=== PATIENT | male | born 1955 | race Caucasian/White ===

== ENCOUNTER 2018-01-21 10:59 | Inpatient (IN) | payer OTHER ==
[~2018-01-21] VITALS: Ht 182.9 cm; Wt 98.3 kg
[2018-01-21] MEDS ORDERED: SODIUM CHLORIDE 0.9% 1,000 ML IV ONE (11:24)
[2018-01-21] MEDS ORDERED: ONDANSETRON HCL 4 MG/2 ML VIAL IV ONE (11:30)
[2018-01-21] MEDS ORDERED: ASPirin 81 mg TAB PO ONE (11:30)
[2018-01-21 11:52] LABS: Basophils # (auto) 0 uL; Basophils % (auto) 0.6 % (0.0-2.0); Eosinophils # (auto) 0.1 uL; Eosinophils % (auto) 1.8 % (0.0-7.0); Hematocrit 47.2 % (41.0-53.0); Hemoglobin 16.4 g/dL (13.5-17.5); Lymphocytes # (auto) 1.4 uL; Mean Corpuscular Hemoglobin 31.6 pg (28.0-32.0); Mean Corpuscular Hgb Conc. 34.8 g/dL (32.0-36.0); Mean Corpuscular Volume 90.6 fL (80.0-100.0); Monocytes # (auto) 0.4 uL; Monocytes % (auto) 7.2 % (0.0-12.0); Neutrophils # (auto) 3.4 uL; Neutrophils % (auto) 64.4 % (37.0-80.0); Nucleated Red Blood Cells % 0.1 %; Platelet Count (auto) 196 10^3/uL (140-450); Red Cell Distribution Width 13.1 % (11.8-14.3); White Blood Cell 5.3 10^3/uL (4.4-10.8)
[2018-01-21 12:09] LABS: INR 0.98 (0.9-1.15); Partial Thromboplastin Time 28.3 sec (22.64-33.71); Prothrombin Time 10.7 sec (9.37-12.3)
[2018-01-21 12:24] LABS: Alanine Aminotransferase 65 U/L (16-61); Albumin 3.7 g/dL (3.4-5.0); Alkaline Phosphatase 90 U/L (45-117); Anion Gap 12 (5-15); Aspartate Aminotransferase 46 U/L (15-37); BUN/Creatinine Ratio 20.8; Bilirubin, Total 0.8 mg/dL (0.2-1.0); Blood Urea Nitrogen 26 mg/dL (7-18); Calcium 8.9 mg/dL (8.5-10.1); Carbon Dioxide 23 mmol/L (21-32); Chloride 101 mmol/L (98-107); GFR African American 76 mL/min; GFR Non-African American 63 mL/min; Magnesium 2.1 mg/dL (1.6-2.6); Potassium 4.2 mmol/L (3.5-5.1); Sodium 136 mmol/L (136-145); Total Protein 8.2 g/dL (6.4-8.2)
[2018-01-21] MEDS ORDERED: NITROGLYCERIN 0.4 MG SL TAB SL ONE (12:28)
[2018-01-21 12:33] LABS: Glucose 440 mg/dL (74-106)
[2018-01-21] MEDS ORDERED: InsuLIN REG 1unit/0.01ml Soln (100units/ml) IV ONE (13:00)
[2018-01-21] MEDS ORDERED: SODIUM CHLORIDE 0.9% 1,000 ML IV SCH (13:47)
[2018-01-21] MEDS ORDERED: MORPHINE SULFATE 4 MG/ML SYR/VIAL IV PRN ×2 (14:00)
[2018-01-21] MEDS ORDERED: LORazepam 0.5 MG TAB PO PRN (14:00)
[2018-01-21] MEDS ORDERED: NITROGLYCERIN 0.4 MG SL TAB SL PRN (14:00)
[2018-01-21] MEDS ORDERED: TEMAZEPAM 15 MG CAP PO PRN (14:00)
[2018-01-21] MEDS ORDERED: PROMETHAZINE HCL 25 MG/ML 1ML IV PRN (14:00)
[2018-01-21] MEDS ORDERED: ALBUTEROL SULF 2.5 MG/0.5ML(0.5%) NEB SOLN NEB PRN (14:00)
[2018-01-21] MEDS ORDERED: LACTULOSE 20Gm/30ML SOLN PO PRN (14:00)
[2018-01-21] MEDS ORDERED: ACETAMINOPHEN 500 MG TAB PO PRN (14:00)
[2018-01-21] MEDS ORDERED: NITROGLYCERIN 0.2MG/HR TOPICAL PATCH TD ONE (14:15)
[2018-01-21 14:23] LABS: Hepatitis B Surface Antibody Negative
[2018-01-21 14:33] LABS: Hepatitis B Surface Antigen Negative (Negative)
[2018-01-21 15:01] LABS: Hepatitis A Total Antibody Negative; Hepatitis C Antibody Negative (Negative)
[2018-01-21 15:02] LABS: Hepatitis B Core Total AB Negative
[2018-01-21] MEDS: HYDROcodone-ACET 5/325MG TAB PO PRN (15:20)
[2018-01-21 16:17] LABS: Alcohol, Urine < 3.0 mg/dL (0-5); Amphetamine Screen, Urine NEGATIVE (NEGATIVE); Barbiturate Scree,Urine NEGATIVE (NEGATIVE); Benzodiazephine Screen, Urine NEGATIVE (NEGATIVE); Cannabinoid Screen, Urine NEGATIVE (NEGATIVE); Cocaine Screen, Urine NEGATIVE (NEGATIVE); Opiate Scree,Urine NEGATIVE (NEGATIVE); Phencyclidine Screen, Urine NEGATIVE (NEGATIVE)
[2018-01-21] MEDS: ALBUTEROL SULF 2.5 MG/0.5ML(0.5%) NEB SOLN NEB SCH (18:11)
[2018-01-21] MEDS: IPRATROPIUM BROM 0.5 MG/2.5ML INH SOL NEB SCH (18:11)
[2018-01-21] MEDS: SODIUM CHLORIDE 0.9% 1,000 ML IV SCH (18:49)
[2018-01-21] MEDS ORDERED: ENOXAPARIN SOD 100 MG/1 ML SYRINGE SC SCH (19:44)
[2018-01-21 20:40] VITALS: BP 134/79
[2018-01-21] MEDS: METOPROLOL TARTRATE 25 MG TAB PO SCH (22:31)
[2018-01-22] MEDS: ALBUTEROL SULF 2.5 MG/0.5ML(0.5%) NEB SOLN NEB SCH ×4 (00:38→18:51)
[2018-01-22] MEDS: IPRATROPIUM BROM 0.5 MG/2.5ML INH SOL NEB SCH ×4 (00:38→18:51)
[2018-01-22] MEDS ORDERED: DEXTROSE (50%) 50ML SYRG IV PRN (03:15)
[2018-01-22] MEDS: HYDROcodone-ACET 5/325MG TAB PO PRN (03:18)
[2018-01-22 06:03] VITALS: BP 108/73
[2018-01-22] MEDS: ACCU-CHEK COMFORT CURVE STRIP VI SCH ×4 (06:23→23:30)
[2018-01-22] MEDS: InsuLIN REG 1unit/0.01ml Soln (100units/ml) SC SCH ×4 (06:27→23:30)
[2018-01-22 06:49] LABS: Albumin 3.6 g/dL (3.4-5.0); Bilirubin, Total 0.8 mg/dL (0.2-1.0); Calcium 8.9 mg/dL (8.5-10.1); Potassium 4.6 mmol/L (3.5-5.1); Total Protein 7.8 g/dL (6.4-8.2)
[2018-01-22] MEDS: SODIUM CHLORIDE 0.9% 1,000 ML IV SCH (07:51)
[2018-01-22] MEDS ORDERED: ADENOSINE 84 MG in GIVE UN-DILUTED 0 ML IV STA (08:00)
[2018-01-22 09:24] VITALS: BP 136/73
[2018-01-22] MEDS: METOPROLOL TARTRATE 25 MG TAB PO SCH ×2 (10:00→22:16)
[2018-01-22] MEDS ORDERED: ENOXAPARIN SOD 40 MG/0.4 ML SYRINGE SC SCH (10:00)
[2018-01-22] MEDS ORDERED: NITROGLYCERIN 0.4 MG SL TAB SL ONE ×2 (10:00)
[2018-01-22] MEDS ORDERED: NITROGLYCERIN 0.2MG/HR TOPICAL PATCH TD SCH (10:00)
[2018-01-22] MEDS ORDERED: LIDOCAINE 2%HCL (LOCAL ANESTH.) INJ 20ML MDV ONE (10:07)
[2018-01-22] MEDS ORDERED: fentaNYL CITRATE 100 MCG/2 ML VL ONE (10:12)
[2018-01-22] MEDS ORDERED: ANGIOMAX 250 MG VIAL IV ONE (10:12)
[2018-01-22] MEDS ORDERED: MIDAZOLAM HCL 1MG/1ML-2 ML VIAL ONE (10:12)
[2018-01-22] MEDS ORDERED: SODIUM CHL 0.9% 0 ML ONE (10:13)
[2018-01-22] MEDS ORDERED: VERAPAMIL 2.5MG/ML INJ 2ML VIAL IV ONE (10:37)
[2018-01-22] MEDS ORDERED: diphenhdrAMINE HCL 50 MG/1 ML VL ONE (10:39)
[2018-01-22] MEDS ORDERED: HEPARIN 1,000 UNITS/ml 1ML VIAL ONE ×2 (10:42→10:55)
[2018-01-22] MEDS ORDERED: ADENOSINE 90 MG/30 ML INJ IV ONE (10:57)
[2018-01-22] MEDS ORDERED: HYDROmorphone HCL 2 MG/ML VL ONE (11:19)
[2018-01-22] MEDS ORDERED: CLOPIDOGREL 300 MG TAB ONE (11:24)
[2018-01-22] MEDS: ASPirin 81 mg TAB PO SCH (12:47)
[2018-01-22] MEDS ORDERED: SODIUM CHLORIDE 0.9% 1,000 ML IV SCH ×2 (13:08→15:00)
[2018-01-22] MEDS ORDERED: ONDANSETRON HCL 4 MG/2 ML VIAL IV PRN (13:15)
[2018-01-22 16:20] VITALS: BP 115/85
[2018-01-22] MEDS ORDERED: ASPI-231 PO (17:49)
[2018-01-22] MEDS ORDERED: LISI2.5T47 PO (17:49)
[2018-01-22] MEDS ORDERED: ADAL1INJ3 SC (17:49)
[2018-01-22] MEDS ORDERED: LEVEMIR SC (17:49)
[2018-01-22 20:00] VITALS: BP 137/83
[2018-01-23] VITALS: BP 121/80
[2018-01-23] MEDS: IPRATROPIUM BROM 0.5 MG/2.5ML INH SOL NEB SCH ×3 (00:15→12:20)
[2018-01-23] MEDS: ALBUTEROL SULF 2.5 MG/0.5ML(0.5%) NEB SOLN NEB SCH ×3 (00:15→12:20)
[2018-01-23 04:00] VITALS: BP 112/74
[2018-01-23] MEDS: ACCU-CHEK COMFORT CURVE STRIP VI SCH ×2 (06:00→11:54)
[2018-01-23] MEDS: InsuLIN REG 1unit/0.01ml Soln (100units/ml) SC SCH ×2 (06:30→11:54)
[2018-01-23 08:00] VITALS: BP 105/74
[2018-01-23] MEDS: METOPROLOL TARTRATE 25 MG TAB PO SCH (09:37)
[2018-01-23] MEDS: ASPirin 81 mg TAB PO SCH (09:37)
[2018-01-23] MEDS ORDERED: CLOPIDOGREL BISULFATE 75 MG TAB PO SCH (10:00)
[2018-01-23 12:03] VITALS: BP 120/72
[2018-01-23 13:13] VITALS: BP 113/79
== END 2018-01-23 15:08 | disposition home or self-care (01) | DRG 247 ==
LOC: ER 10:59 → EDBD 11:00 → TELE 11:00 → ICU CENTRL 01-22 16:32 → DOU IN ICU 01-22 17:21
PROVIDERS: ADMIT Internal Medicine; ATTEND Family Medicine
PROC: 027034Z Dilation of Coronary Artery, One Artery with Drug-eluting Intraluminal Device, Percutaneous Approach (ICD-10-PCS; principal; 2018-01-22)
PROC: 4A023N7 Measurement of Cardiac Sampling and Pressure, Left Heart, Percutaneous Approach (ICD-10-PCS; 2018-01-22)
PROC: B2111ZZ Fluoroscopy of Multiple Coronary Arteries using Low Osmolar Contrast (ICD-10-PCS; 2018-01-22)
PROC: 5A09357 Assistance with Respiratory Ventilation, Less than 24 Consecutive Hours, Continuous Positive Airway Pressure (ICD-10-PCS; 2018-01-22)
PROC: 5A09357 Assistance with Respiratory Ventilation, Less than 24 Consecutive Hours, Continuous Positive Airway Pressure (ICD-10-PCS; 2018-01-23)
DX: I21.4 Non-ST elevation (NSTEMI) myocardial infarction (principal); E11.65 Type 2 diabetes mellitus with hyperglycemia; K76.0 Fatty (change of) liver, not elsewhere classified; E11.9 Type 2 diabetes mellitus without complications; J44.9 Chronic obstructive pulmonary disease, unspecified; I10 Essential (primary) hypertension; M19.90 Unspecified osteoarthritis, unspecified site; K59.00 Constipation, unspecified; G47.00 Insomnia, unspecified; I25.110 Atherosclerotic heart disease of native coronary artery with unstable angina pectoris; E66.01 Morbid (severe) obesity due to excess calories; E78.5 Hyperlipidemia, unspecified; F41.9 Anxiety disorder, unspecified; G47.33 Obstructive sleep apnea (adult) (pediatric); Z82.49 Family history of ischemic heart disease and other diseases of the circulatory system; Z68.29 Body mass index [BMI] 29.0-29.9, adult; Z87.891 Personal history of nicotine dependence
CPT/HCPCS: 36415; 71045; 76705; 80053; 80061; 80307; 82550; 82962; 83735; 84484; 85025; 85379; 85610; 85652; 85730; 86141; 86704; 86706; 86708; 86803; 87081; 87340; 92928; 93005; 93306; 93458; 94640; 94660; 94761; 96361; 96374; 96375; 99152; C1874; J0153; J1815; J2250; J2405